=== PATIENT | female | born 1995 | race Caucasian/White ===

== ENCOUNTER → 2024-01-03 08:00 | Outpatient (REF) | payer OTHER, SELFPAY | LOC: MRI 08:00 | PROVIDERS: ATTENDING PHYSICIAN Psychiatry & Neurology Neurology; FAMILY PHYSICIAN Family Medicine | DX: G40.409 Other generalized epilepsy and epileptic syndromes, not intractable, without status epilepticus (principal) | CPT/HCPCS: 70553; A9575 ==

== ENCOUNTER → 2024-03-06 09:42 | Outpatient (REF) | payer OTHER, SELFPAY | LOC: EEG 09:42 | PROVIDERS: ATTENDING PHYSICIAN Psychiatry & Neurology Neurology; FAMILY PHYSICIAN Family Medicine | DX: G40.909 Epilepsy, unspecified, not intractable, without status epilepticus (principal) | CPT/HCPCS: 95708 ==